=== PATIENT | male | born 1940 | race Caucasian/White ===

== ENCOUNTER → 2024-02-24 | Outpatient (CLI) | payer MEDICARE, OTHER ==
[~2024-02-24] VITALS: Ht 180.3 cm; Wt 81.0 kg
[~2024-02-24] MED LIST: ATOR40TA28 PO; CARV25 PO; EMPA10TA3 PO; FURO40 PO; IPRATROPIUM; LEVO25TA9 PO; MAGN400T57 PO; METF-1211 PO; NITROLINGUAL SPRAY; RIVA20TA PO; SACU1TAB PO; SPIR-37 PO; VITAMIN SUPPLEMENT PO
[2024-02-24 13:22] VITALS: BP 116/69; PULSE 82; RESP 19; TEMP 97.9; O2SAT 96
== END | disposition home or self-care (01) ==
LOC: SRCNTR 11:50
PROVIDERS: ATTEND Internal Medicine Pulmonary Disease
DX: I48.91 Unspecified atrial fibrillation (principal); E03.9 Hypothyroidism, unspecified; I42.9 Cardiomyopathy, unspecified; Z82.49 Family history of ischemic heart disease and other diseases of the circulatory system; Z98.890 Other specified postprocedural states
CPT/HCPCS: G0463